=== PATIENT | female | born 1980 | race Caucasian/White ===

== ENCOUNTER 2017-05-04 16:56 | Emergency (ER) | payer MEDICAID, OTHER ==
[2017-05-04 16:56] VITALS: BMI 25.2
--- NOTE | 2017-05-04 19:00 | C.PDOC ---
Time Seen by Provider: 05/04/17 18:52 Chief Complaint (Nursing): Abdominal Pain History Per: Patient Onset/Duration Of Symptoms: Days (1), Waxing/Waning Current Symptoms Are (Timing): Still Present Severity: Moderate Location Of Pain/Discomfort: Suprapubic Quality Of Discomfort: Sharp, "Pain" Associated Symptoms: Nausea Exacerbating Factors: None Alleviating Factors: None Additional History Per: Prior Records Past Medical History Reviewed: Historical Data, Nursing Documentation, Vital Signs Vital Signs: Last Vital Signs Temp 98.1 F 05/04/17 21:18 Pulse 92 H 05/04/17 21:18 Resp 16 05/04/17 21:18 BP 120/81 05/04/17 21:18 Pulse Ox 97 05/04/17 21:18 - Medical History PMH: No Chronic Diseases Other Surgeries: IUD - [facility] Procedures DELIVERY OF PRODUCTS OF CONCEPTION, EXTERNAL APPROACH (06/24/15) DIVISION OF FEMALE PERINEUM, EXTERNAL APPROACH (06/24/15) Family History: States: Unknown Family Hx - Social History Hx Tobacco Use: No Hx Alcohol Use: No Hx Substance Use: No - Immunization History Hx Tetanus Toxoid Vaccination: No Hx Influenza Vaccination: No Hx Pneumococcal Vaccination: No Review Of Systems Except As Marked, All Systems Reviewed And Found Negative. Constitutional: Negative for: Fever Cardiovascular: Negative for: Chest Pain Respiratory: Negative for: Shortness of Breath Gastrointestinal: Positive for: Abdominal Pain. Negative for: Vomiting, Diarrhea Genitourinary: Negative for: Dysuria, Vaginal Discharge, Vaginal Bleeding Musculoskeletal: Positive for: Neck Pain. Negative for: Back Pain Skin: Negative for: Rash Neurological: Negative for: Weakness, Numbness Physical Exam - Physical Exam Appears: Non-toxic, No Acute Distress Skin: Normal Color, Warm, Dry, No Rash Head: Atraumatic, Normacephalic Eye(s): bilateral: Normal Inspection, PERRL, EOMI Neck: Normal ROM, Supple Cardiovascular: Rhythm Regular Respiratory: Normal Breath Sounds, No Accessory Muscle Use Gastrointestinal/Abdominal: Soft, Tenderness (Suprapubic), No Distention Back: No CVA Tenderness Pelvic: Normal Bimanual Exam, No Vaginal Bleeding, No Vaginal Discharge, No Cervical Motion Tenderness, No Adnexal Tenderness, No Tender Uterus Extremity: Normal ROM Neurological/Psych: Oriented x3, Normal Motor, Normal Sensation ED Course And Treatment - Laboratory Results Result Diagrams: 05/04/17 19:50 05/04/17 19:50 Urine POC: Negative O2 Sat by Pulse Oximetry: 100 Pulse Ox Interpretation: Normal - CT Scan/US CT abd/pelv Other Rad Studies (CT/US): Read By Radiologist, Radiology Report Reviewed CT/US Interpretation: IMPRESSION: 1. Involuting or ruptured LEFT ovarian follicle/cyst. 2. Kidney lesion, indeterminate. Recommend nonemergent ultrasound or MRI. 3. Incidental/non-acute findings are described above. Reassessment Condition: Improved Disposition Counseled Patient/Family Regarding: Studies Performed, Diagnosis, Need For Followup, Rx Given - Disposition Referrals: Maycol Thomas MD [Staff Provider] - Disposition: HOME/ ROUTINE Disposition Time: 23:51 Condition: IMPROVED Additional Instructions: Follow up with your primary doctor and your [employer] Worker for further evaluation and treatment. Return to the ER if you develop fever, vomiting, dizziness, worsening of symptoms or if you have any other concerns. Prescriptions: Naproxen [Naprosyn] 1 tab PO BID PRN #20 tab PRN Reason: Pain Instructions: Ovarian Cyst (ED) Forms: [facility] (Algerian) Print Language: TOGOLESE - Clinical Impression Clinical Impression: Other ovarian cyst, left side, Lesion of left [place] kidney
[2017-05-04] MEDS ORDERED: Sodium Chloride 0.9% 1,000 ML IV ONE (19:20)
[2017-05-04] MEDS ORDERED: Sodium Chloride 0.9% 1,000 ML ONE (19:43)
[2017-05-04 20:05] LABS: BASO # 0.1 K/uL (0.0-0.2); BASO % 0.8 % (0.0-2.0); EOS % 0.1 % (0.0-4.0); HEMATOCRIT 42.4 % (34.0-47.0); LYMPH # 1.2 K/uL (1.0-4.3); LYMPH % 7.9 % (20.0-40.0); MEAN CELL VOLUME 90.2 fL (81.0-99.0); MEAN CORPUSCULAR HGB CONC 33.2 g/dL (33.0-37.0); MEAN PLATELET VOLUME 7.4 fL (7.2-11.7); MONO # 0.5 K/uL (0.0-0.8); MONO % 3.7 % (0.0-10.0); NRBC % 0.1 % (0.0-2.0); PLATELET COUNT 482 K/uL (130-400); RED CELL DISTRIBUTION WIDTH 12.9 % (11.5-14.5); WHITE BLOOD COUNT 14.7 K/uL (4.8-10.8)
[2017-05-04 20:08] LABS: RBC URINE 2 /hpf (0-3); URINE BILIRUBIN NEGATIVE (NEGATIVE); URINE BLOOD 1+ (NEGATIVE); URINE COLOR Yellow (YELLOW); URINE GLUCOSE (UA) NORMAL (Normal); URINE KETONE 1+ mg/dL (NEGATIVE); URINE LEUKOCYTE ESTERASE TRACE Leu/uL (Negative); URINE PROTEIN NEGATIVE (NEGATIVE); URINE UROBILINOGEN NORMAL mg/dL (0.2-1.0); WBC URINE 1 /hpf (0-5)
[2017-05-04 20:15] LABS: CHLORIDE 98 mmol/L (98-107); POTASSIUM 4.4 mmol/L (3.6-5.2); SODIUM 139 mmol/L (132-148)
[2017-05-04 20:17] LABS: ALB/GLOB RATIO 1.2 (1.0-2.1); BILIRUBIN,TOTAL 0.8 mg/dL (0.2-1.3); CARBON DIOXIDE 24 mmol/L (22-30); GFR AFRICAN-AMERICAN > 60; TOTAL PROTEIN 8.1 g/dL (6.3-8.3)
[2017-05-04 20:18] LABS: ALKALINE PHOSPHATASE 82 U/L (38-126); ALT/SGPT 21 U/L (9-52); AST/SGOT 18 U/L (14-36); BLOOD UREA NITROGEN 14 mg/dL (7-17); CALCIUM 9.9 mg/dl (8.6-10.4); GLUCOSE,RANDOM 88 mg/dL (65-105)
[2017-05-04 20:40] LABS: EOSINOPHIL 1 % (0-4); NEUTROPHIL 96 % (50-75); TOTAL CELLS COUNTED 100
[2017-05-04] MEDS ORDERED: Iohexol 300 100 ML IJ ONE (21:39)
--- NOTE | 2017-05-04 23:35 | CT ---
EXAM: CT Abdomen and Pelvis With Intravenous Contrast CLINICAL HISTORY: 37 years old, female; Pain; Abdominal pain; Prior surgery; Surgery type: Appendectomy; Additional info: Lower abdominal pain. H/o appendectomy TECHNIQUE: Axial computed tomography images of the abdomen and pelvis with intravenous contrast. All CT scans at this facility use one or more dose reduction techniques, viz.: automated exposure control; ma/kV adjustment per patient size (including targeted exams where dose is matched to indication; i.e. head); or iterative reconstruction technique. Coronal and sagittal reformatted images were created and reviewed. CONTRAST: 100 mL of [id number] administered intravenously. COMPARISON: CT - ABD PELVIS W/O PO OR IV CONT 11/13/2015 5:59:29 PM FINDINGS: Lower thorax: Minimal atelectasis. ABDOMEN: Liver: Unremarkable. No mass. Gallbladder and bile ducts: No calcified stones. No ductal dilation. Pancreas: No ductal dilation. No mass. Spleen: No splenomegaly. Adrenals: No mass. Kidneys and ureters: Punctate calculus within LEFT kidney. 2.1 x 2.5 x 2.3 cm lesion within LEFT kidney, indeterminate by CT criteria. Too small to characterize lesion within LEFT kidney. No hydronephrosis. Stomach and bowel: No definite mural thickening. No obstruction. Appendix: Appendectomy. PELVIS: Bladder: Unremarkable. Reproductive: IUD. 1.9 x 1.3 x 1.7 cm peripherally enhancing hypodensity with crenulated margins within LEFT ovary. ABDOMEN and PELVIS: Intraperitoneal space: No significant fluid collection. No free air. Bones/joints: No acute fracture. Soft tissues: Unremarkable. Vasculature: Unremarkable. No aneurysm. Lymph nodes: No pathologically enlarged lymph nodes. IMPRESSION: 1. Involuting or ruptured LEFT ovarian follicle/cyst. 2. Kidney lesion, indeterminate. Recommend nonemergent ultrasound or MRI. 3. Incidental/non-acute findings are described above.
[2017-05-05 00:17] VITALS: BP 120/77; PULSE 90; RESP 20; TEMP 97.9; O2SAT 98
== END 2017-05-05 00:17 | disposition home or self-care (01) ==
LOC: C.ER 16:56
DX: N83.292 Other ovarian cyst, left side (principal); N28.89 Other specified disorders of kidney and ureter
CPT/HCPCS: 74177; 80053; 81001; 84703; 85025; 87491; 87591; 96361; 96374; 96375; 99285; J1885; J2405; J7040; Q9967

== ENCOUNTER 2017-07-27 01:33 | Emergency (ER) | payer MEDICAID, OTHER ==
--- NOTE | 2017-07-27 01:52 | C.PDOC ---
History Of Present Illness 37 yo female come in for evaluation of N/V, epigastric pain gradually developed for past few hours. As per pt, (+) sick contact, similar sx children. Otherwise , pt denies high fever, chills, headache, dizziness, weakness, drooling, neck apin, CP, SOB, dyspnea, palpitation, hematemesis, melena, back pain, UTI sx, recent travel. Ambulate to Ed for evaluation. FYI:Pt's daughter is patient in ED as well with similar sx. Time Seen by Provider: 07/27/17 01:46 History Per: Patient Past Medical History Reviewed: Historical Data, Nursing Documentation, Vital Signs Vital Signs: Last Vital Signs Temp 97.9 F 07/27/17 02:01 Pulse 93 H 07/27/17 02:01 Resp 20 07/27/17 02:01 BP 140/98 H 07/27/17 02:01 Pulse Ox 97 07/27/17 02:01 - Medical History PMH: Kidney Stones Surgical History: Appendectomy - [facility] Procedures DELIVERY OF PRODUCTS OF CONCEPTION, EXTERNAL APPROACH (06/24/15) DIVISION OF FEMALE PERINEUM, EXTERNAL APPROACH (06/24/15) Family History: States: Unknown Family Hx - Social History Hx Tobacco Use: No Hx Alcohol Use: No Hx Substance Use: No - Immunization History Hx Tetanus Toxoid Vaccination: No Hx Influenza Vaccination: No Hx Pneumococcal Vaccination: No Review Of Systems Except As Marked, All Systems Reviewed And Found Negative. Constitutional: Negative for: Fever, Chills Eyes: Negative for: Vision Change ENT: Negative for: Throat Pain Cardiovascular: Negative for: Chest Pain, Palpitations Respiratory: Negative for: Cough, Shortness of Breath Gastrointestinal: Positive for: Nausea, Vomiting, Abdominal Pain. Negative for : Diarrhea, Melena, Hematochezia Genitourinary: Negative for: Dysuria, Frequency Musculoskeletal: Negative for: Neck Pain, Back Pain Skin: Negative for: Rash Neurological: Negative for: Altered Mental Status, Headache, Dizziness Physical Exam - Physical Exam Appears: Well, Non-toxic, No Acute Distress Skin: Normal Color, Warm, Dry, No Rash Head: Normacephalic Eye(s): bilateral: PERRL Ear(s): Bilateral: Normal Nose: No Discharge Oral Mucosa: Moist, No Drooling Throat: No Erythema, No Exudate, No Drooling Neck: Supple Cardiovascular: Rhythm Regular, No Murmur, No JVD Respiratory: No Decreased Breath Sounds, No Accessory Muscle Use, No Stridor, No Wheezing Gastrointestinal/Abdominal: Soft, Tenderness (mild epigastric tenderness), No Distention, No Guarding, No Rebound Back: No CVA Tenderness Extremity: Normal ROM, No Deformity, No Swelling Neurological/Psych: Oriented x3, Normal Speech ED Course And Treatment Progress Note: On re-eval, pt is afebrile, hemodynamicaly stable. Non-toxic. Pt reports, mod improvement in sx, pt was given PO challange, tolerate well. PulsEOx 99% RA. Neck: Supple, (-) meningeal sign. ENT: no acute findings. Lungs: CTA B/L, BS euqal B/L. Abd: benign, (-) guaridng, (-) rebound, (-) localized tendetmess. back: (-) CVA tenderness. Pt has clinical findings c/w fever N/V, epigastric pain r/o viral illness. Pt advised, ref. to F/u with PMD in 2-3 days for re-eval. return if any new changes. Disposition Counseled Patient/Family Regarding: Diagnosis, Need For Followup, Rx Given - Disposition Referrals: [facility] [Outside] Disposition: HOME/ ROUTINE Disposition Time: 03:27 Condition: STABLE Additional Instructions: ENCOURAGE FLUIDS DIET RESTRICTION BRAT DIET - BANANA, RICE, APPLE SAUCE, TOAST. AVOID DAIRY FOR 2-3 DAYS ADVANCE TOLERATED IN 2-3 DAYS FOLLOW UP WITH PMD IN 2-3 DAYS FOR RE-EVALUATION. RETURN TO ED IF ANY WORSENING OR NEW CHANGES. Prescriptions: Ondansetron ODT [Zofran ODT] 1 odt PO BID PRN #6 odt PRN Reason: Nausea/Vomiting Instructions: Gastroenteritis (ED), Acute Nausea and Vomiting (ED) Forms: [facility] (South Korean), Work Excuse - Clinical Impression Clinical Impression: Vomiting, Epigastric abdominal pain
[2017-07-27 01:57] VITALS: BMI 21.9
[2017-07-27 02:03] VITALS: RESP 20
[2017-07-27 04:53] VITALS: BP 127/81; PULSE 81; TEMP 98.7; O2SAT 100
== END 2017-07-27 03:40 | disposition home or self-care (01) ==
LOC: C.ER 01:33
DX: R10.13 Epigastric pain (principal); R11.2 Nausea with vomiting, unspecified